=== PATIENT | male | born 1995 | race Two or more races ===

== ENCOUNTER 2020-09-17 13:49 | Emergency (ER) | payer SELFPAY ==
[~2020-09-17] VITALS: Ht 177.8 cm; Wt 99.8 kg
[~2020-09-17 13:49] MED LIST: COROSUS OT; IBUP800T27 PO; [UNRECOGNIZED DRUG - CODE] EACH EAR
[2020-09-17 14:01] VITALS: BP 148/91
[2020-09-17] MEDS ORDERED: FLUORESCEIN SOD OPTH TEST STRIP OP ONE (16:00)
== END 2020-09-17 16:47 | disposition home or self-care (01) ==
LOC: ER 13:49
DX: S05.02XA Injury of conjunctiva and corneal abrasion without foreign body, left eye, initial encounter (principal); H10.32 Unspecified acute conjunctivitis, left eye; I10 Essential (primary) hypertension; X58.XXXA Exposure to other specified factors, initial encounter; Y93.89 Activity, other specified; Y92.89 Other specified places as the place of occurrence of the external cause; Y99.8 Other external cause status